=== PATIENT | male | born 1955 | race Caucasian/White ===

== ENCOUNTER 2017-01-30 18:52 | Emergency (ER) | payer BC ==
[2017-01-30] MEDS ORDERED: AMOXICILLIN TR/POT CLAVULANATE 500-125 MG TAB PO ONE (19:30)
--- NOTE | 2017-01-30 19:39 | ER Document Report ---
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 The cat does bite and scratch him but he does not know when this injury occurred increased pain and throbbing today. He is a type II diabetic and takes oral medication. No fever. Associated Symptoms: None Exacerbated by: Denies Relieved by: Denies Similar symptoms previously: No Recently seen / treated by doctor: No - ROS ROS below otherwise negative: Yes Systems Reviewed and Negative: Yes All other systems reviewed and negative Past Medical History - General Information source: Patient - Social History Smoking Status: Never Smoker Frequency of alcohol use: None Drug Abuse: None Lives with: Family Family History: Reviewed & Not Pertinent Endocrine Medical History: Reports: Hx Diabetes Mellitus Type 2 Musculoskeltal Medical History: Reports Hx Arthritis Surgical Hx: Negative Vertical Provider Document - CONSTITUTIONAL Agree With Documented VS: Yes Exam Limitations: No Limitations - INFECTION CONTROL TRAVEL OUTSIDE OF THE [place] IN LAST 30 DAYS: No - HEENT HEENT: Normocephalic - NECK Neck: Supple - RESPIRATORY O2 Sat by Pulse Oximetry: 97 - MUSCULOSKELETAL/EXTREMETIES Musculoskeletal/Extremeties: BERENICE, FROM Notes: Severe lateral hand arthritis deformities. Paronychia ulnar side base of the right thumb nail, some pus under the nail itself. - NEURO Level of Consciousness: Awake, Alert, Appropriate Motor/Sensory: No Motor Deficit, No Sensory Deficit - DERM Integumentary: Abscess - See above for paronychia Course - Vital Signs Vital signs: Temp Pulse Resp BP Pulse Ox 98.3 F 101 H 18 141/58 H 97 01/30/17 18:56 01/30/17 18:56 01/30/17 18:56 01/30/17 18:56 01/30/17 18:56 Procedures - Incision and Drainage Right Thumb Time completed: 21:00 Type: Simple Anesthetic type: 1% Lidocaine mL's of anesthetic: 2 Blade size: 11 I&D procedure: Betadine prep applied Incision Method: Incision made by scalpel - large pus and blood, devitalized tissue excised Discharge - Discharge Clinical Impression: right htumb paronychia Condition: Good Disposition: HOME, SELF-CARE Instructions: Acetaminophen, Augmentin ([facility]), Use of Oceg-Sea-Qyfbask Ibuprofen ([facility]), Paronychia ([facility]), Post Incision and Drainage Additional Instructions: Soak the thumb in warm soapy water twice a day bacitracin, Dry dressing See your doctor in [place] in 48 hours for wound check finish the antibiotics Return to the emergency room for any concerns or increased swelling or fever or pain Please complete the patient satisfaction survey if you get one, and return it.. If you do not receive a survey, then you can go to the [facility] website, [email or web address] and place your comments about your very good care. Thank you very much. It was a pleasure being your medical provider today. Prescriptions: Amoxicillin/Potassium Clav [Augmentin 875-125 Tablet] 1 each PO BID #14 tablet Forms: Return to Work
[2017-01-30 21:01] VITALS: BP 127/57
== END 2017-01-30 21:04 | disposition home or self-care (01) ==
LOC: ER 18:52
DX: L03.011 Cellulitis of right finger (principal); E11.9 Type 2 diabetes mellitus without complications; Z79.84 Long term (current) use of oral hypoglycemic drugs; M19.049 Primary osteoarthritis, unspecified hand
CPT/HCPCS: 99283

== ENCOUNTER 2017-03-11 10:45 | Emergency (ER) | payer BC ==
[2017-03-11 10:51] VITALS: BP 139/76
[2017-03-11] MEDS ORDERED: PREDNISONE 20 MG TABLET PO ONE (11:26)
--- NOTE | 2017-03-11 11:29 | ER Document Report ---
HPI - HPI Patient complains to provider of: hand, joint pain Onset: Other - 3 days Onset/Duration: Persistent Quality of pain: Achy Pain Level: 4 Context: Patient presents complaining of a 3 day history of joint pain to his hands, feet , knees and shoulders. Patient does report a history of rheumatoid arthritis. Patient states he called his doctor and was supposed to have had a steroid pack prescription written for him but he has not received a prescription. Patient states that he is visiting from out of town. Patient denies any injury. Patient denies any fever. Patient states pain is typical of flareups that he has had in the past. Associated Symptoms: Other - Joint pain Exacerbated by: Movement Relieved by: Denies Similar symptoms previously: Yes Recently seen / treated by doctor: No - ROS ROS below otherwise negative: Yes Systems Reviewed and Negative: Yes All other systems reviewed and negative - CONSTITUTIONAL Constitutional: DENIES: Fever, Chills - GASTROINTESTINAL Gastrointestinal: DENIES: Nausea, Patient vomiting - MUSCULOSKELETAL Musculoskeletal: REPORTS: Extremity pain - DERM Skin Color: Normal, [place] Skin Problems: None Past Medical History - General Information source: Patient - Social History Smoking Status: Former Smoker Chew tobacco use (# tins/day): No Frequency of alcohol use: None Drug Abuse: None Family History: Reviewed & Not Pertinent Patient has suicidal ideation: No Patient has homicidal ideation: No - Past Medical History Cardiac Medical History: Reports: Hx Hypertension Endocrine Medical History: Reports: Hx Diabetes Mellitus Type 2 Renal/ Medical History: Denies: Hx Peritoneal Dialysis Musculoskeltal Medical History: Reports Hx Arthritis - Rheumatoid Arthritis Surgical Hx: Negative Vertical Provider Document - CONSTITUTIONAL Agree With Documented VS: Yes Exam Limitations: No Limitations General Appearance: WD/WN, No Apparent Distress - INFECTION CONTROL TRAVEL OUTSIDE OF THE [place] IN LAST 30 DAYS: No - HEENT HEENT: Atraumatic, Normocephalic - NECK Neck: Normal Inspection, Supple - RESPIRATORY Respiratory: Breath Sounds Normal, No Respiratory Distress O2 Sat by Pulse Oximetry: 99 - CARDIOVASCULAR Cardiovascular: Regular Rate, Regular Rhythm Pulses: Normal: Radial - BACK Back: Normal Inspection - MUSCULOSKELETAL/EXTREMETIES Musculoskeletal/Extremeties: MAEW, Tender - Small joints of hands, bilateral knees, joints of feet. negative: Eccymosis Notes: Chronic changes consistent with history of rheumatoid arthritis with joint deformity of hands - NEURO Level of Consciousness: Awake, Alert, Appropriate Motor/Sensory: No Motor Deficit - DERM Integumentary: Warm, Dry, No Rash Course - Re-evaluation Re-evalutation: 03/11/17 11:27 Controlled substance database reviewed - Vital Signs Vital signs: Temp Pulse Resp BP Pulse Ox 98.2 F 72 139/76 H 99 03/11/17 10:50 03/11/17 10:50 03/11/17 10:50 03/11/17 10:50 Discharge - Discharge Clinical Impression: Hx of rheumatoid arthritis Arthralgia Qualifiers: Joint pain location: unspecified Qualified Code(s): M25.50 - Pain in unspecified joint Condition: Stable Disposition: HOME, SELF-CARE Instructions: Rheumatoid Arthritis ([facility]), Steroid Medication Additional Instructions: Return immediately for any new or worsening symptoms Followup with your primary care provider, call tomorrow to make a followup appointment Prescriptions: Prednisone [Deltasone 10 mg Tablet] 10 mg PO ASDIR PRN #21 tablet PRN Reason: Referrals: [facility] [Provider Group] - Follow up as needed
== END 2017-03-11 11:41 | disposition home or self-care (01) ==
LOC: ER 10:45
DX: M06.9 Rheumatoid arthritis, unspecified (principal); I10 Essential (primary) hypertension; E11.9 Type 2 diabetes mellitus without complications; Z87.891 Personal history of nicotine dependence
CPT/HCPCS: 99283; J7512